=== PATIENT | female | born 1975 | race Two or more races ===

== ENCOUNTER 2025-02-28 10:47 | Emergency (ER) | payer OTHER ==
[~2025-02-28] VITALS: Ht 160 cm; Wt 74.4 kg
[2025-02-28] MEDS ORDERED: DEXAMETHASONE SODIUM PHOSPHATE 4 MG/ML VIAL IM ONE (12:30)
[2025-02-28] MEDS ORDERED: KETOROLAC TROMETHAMINE 60 MG VIAL IM ONE ×2 (12:30→12:53)
[2025-02-28] MEDS ORDERED: DEXAMETHASONE SODIUM PHOSPHATE 4 MG/ML VIAL ONE (12:54)
== END 2025-02-28 15:54 | disposition home or self-care (01) ==
LOC: ER 10:48
DX: G50.0 Trigeminal neuralgia (principal); R68.84 Jaw pain